=== PATIENT | female | born 1970 | race Caucasian/White ===

== ENCOUNTER → 2017-10-08 | Outpatient (CLI) | payer OTHER ==
--- NOTE | 2017-10-08 19:52 | XR ---
EXAMINATION TYPE: XR ankle complete RT DATE OF EXAM: 10/08/2017 COMPARISON: NONE HISTORY: Pain TECHNIQUE: 3 views FINDINGS: There are plantar and Achilles calcaneal spurs. I see no fracture nor dislocation. Subtalar joint appears normal. Ankle mortise is anatomic. IMPRESSION: Calcaneal spurring. No fracture seen. Calcification at the medial malleolus consistent wi th old injury.
== END | disposition home or self-care (01) ==
LOC: RADXRMAIN 19:22
PROVIDERS: ATTEND Family Medicine
DX: M77.31 Calcaneal spur, right foot (principal)

== ENCOUNTER → 2018-08-13 | Outpatient (CLI) | payer OTHER ==
--- NOTE | 2018-08-13 13:36 | US ---
EXAMINATION TYPE: US thyroid st tissue head/neck DATE OF EXAM: 08/13/2018 COMPARISON: US 10/04/16 CLINICAL HISTORY: E04.1 Nontoxic single thyroid nodule. GLAND SIZE: Right Lobe: 3.9 x 1.9 x 1.6 cm Overall Parenchyma: heterogenous Left Lobe: 4.0 x 1.5 x 1.4 cm Overall Parenchyma: heterogeneous Isthmus Thickness: 0.4 cm NODULES RIGHT: # of nodules measured on right: 2 1. 1.5 X 1.3 x 1.1 cm hypoechoic solid nodule at the Upper, Medial pole with well-defined margins; . This nodule is wider than tall and shows intranodular vascularity. Prior size: 1.4 x 1.0 cm 2. 0.8 X 0.6 x 0.5 cm isoechoic solid nodule at the Mid, Lateral pole with poorly defined margins; p resent with microcalcifications. This nodule is wider than tall and shows intranodular vascularity. Prior size: 0.8 x 0.6 cm LEFT: # of nodules measured on left: 2 1. 0.3 X 0.4 x 0.2 cm hypoechoic solid nodule at the lower pole with well-defined margins; . This nodule is wider than tall and shows no intranodular vascularity. Previously this was seen as cystic Prior size: 0.4 cm 2. 0.3 X 0.4 x 0.3 cm hypoechoic solid nodule at the mid pole with well-defined margins; . This nod ule is wider than tall and shows no intranodular vascularity. Prior size: Not seen previously ISTHMUS: # of nodules measured on isthmus: 0 Bilateral neck scanned, no evidence of lymphadenopathy. IMPRESSION: Essentially stable exam. Possible new subcentimeter nodule left lobe inferior aspect.
== END | disposition home or self-care (01) ==
LOC: RADUSWWP 07:08
PROVIDERS: ATTEND Family Medicine
DX: E04.1 Nontoxic single thyroid nodule (principal)
CPT/HCPCS: 76536

== ENCOUNTER → 2018-08-21 | Outpatient (CLI) | payer OTHER ==
--- NOTE | 2018-08-22 10:15 | NM ---
EXAMINATION TYPE: NM thyroid image w uptake DATE OF EXAM: 08/22/2018 COMPARISON: Ultrasound 08/13/2018 HISTORY: Abnormal ultrasound TECHNIQUE: Thyroid iodine uptake is calculated and images performed after the oral administration of 307 uCi 1-123 Capsule. FINDINGS: There is heterogeneous uptake throughout the right lobe of the thyroid.. The 4 hour iodine uptake is calculated at 14.7% (normal range 8-14%). The 24-hour iodine uptake is calculated at 29.1% (normal range 15-35%). IMPRESSION: 1. Uptake is at the upper limits of normal. 2. Heterogeneous uptake throughout the right lobe of the thyroid. Reduced area of uptake may correspo nd to the 1.5 cm nodule seen by recent ultrasound representing a cold nodule.
== END | disposition home or self-care (01) ==
LOC: RADNMMAIN 09:33
PROVIDERS: ATTEND Family Medicine
DX: E04.1 Nontoxic single thyroid nodule (principal); R94.8 Abnormal results of function studies of other organs and systems
CPT/HCPCS: 78014; A9516

== ENCOUNTER 2018-10-18 09:31 | Day surgery (SDC) | payer OTHER ==
[2018-10-18 10:00] VITALS: TEMP 98.2
[2018-10-18 11:27] VITALS: PULSE 80
[2018-10-18 11:28] VITALS: BP 136/80; RESP 14
--- NOTE | 2018-10-18 11:36 | US ---
ULTRASOUND GUIDED FNA THYROID BIOPSY: CLINICAL HISTORY: Right thyroid nodule FINDINGS: The procedure was explained to the patient. The risks, complications, benefits and alternatives were discussed and any questions were answered. Informed consent was obtained. Patient was placed supin e on the ultrasound table and prepped and draped in the usual sterile fashion. Utilizing a 25 gauge needle, five passes were made into the requested right thyroid nodule. Patient was stable throughout the procedure. Pathology is pending. All elements of maximal barrier technique were utilized. IMPRESSION: 1. Successful ultrasound guided FNA thyroid biopsy.
== END 2018-10-18 11:05 | disposition home or self-care (01) ==
LOC: RADPROMAIN 09:31
PROVIDERS: ATTEND Otolaryngology
DX: E04.1 Nontoxic single thyroid nodule (principal)
CPT/HCPCS: 10022; 76942; 88173; 88305

== ENCOUNTER → 2019-04-23 | Outpatient (CLI) | payer OTHER ==
--- NOTE | 2019-04-23 16:10 | US ---
EXAMINATION TYPE: US thyroid st tissue head/neck DATE OF EXAM: 04/23/2019 COMPARISON: US 08/13/2018 CLINICAL HISTORY: E04.1 thyroid nodule. Follow up. Previous biopsy on the right GLAND SIZE: Right Lobe: 4.5 x 1.8 x 1.8 cm Overall Parenchyma: homogenous Left Lobe: 4.0 x 1.2 x 1.5 cm Overall Parenchyma: homogeneous Isthmus Thickness: 0.3 cm NODULES RIGHT: # of nodules measured on right: 2 1. 1.3 X 1.0 x 1.2 cm hypoechoic solid nodule at the mid pole with well-defined margins; . This no dule is wider than tall and shows intranodular vascularity. Prior size: 1.5 x 1.3 x 1.1 cm 2. 0.5 X 0.6 x 0.4 cm calcification nodule at the upper pole with poorly defined margins; . This no dule is taller than wide and shows no intranodular vascularity. Prior size: 0.8 x 0.5 x 0.6 cm LEFT: # of nodules measured on left: 0 ISTHMUS: # of nodules measured in the isthmus: 0 Bilateral neck scanned, no evidence of lymphadenopathy. Redemonstration of homogeneous normal-sized thyroid with stable right-sided thyroid nodules. No new s uspicious nodules are seen. IMPRESSION: As above.
== END | disposition home or self-care (01) ==
LOC: RADUSWWP 15:07
PROVIDERS: ATTEND Otolaryngology
DX: E04.2 Nontoxic multinodular goiter (principal)
CPT/HCPCS: 76536

== ENCOUNTER → 2019-10-13 | Outpatient (CLI) | payer OTHER ==
--- NOTE | 2019-10-13 08:36 | US ---
EXAMINATION TYPE: US thyroid st tissue head/neck DATE OF EXAM: 10/13/2019 COMPARISON: US CLINICAL HISTORY: E04.1 Thyroid nodule. Previous right larger thyroid nodule biopsy. GLAND SIZE: Right Lobe: 4.7 x 1.9 x 1.7 cm Overall Parenchyma: homogenous Left Lobe: 4.0 x 1.4 x 1.5 cm Overall Parenchyma: homogeneous Isthmus Thickness: 0.5 cm NODULES RIGHT: # of nodules measured on right: 2 1. 1.4 X 1.3 x 1.1 cm hypoechoic mixed nodule at the mid medial pole with well-defined margins. Th is nodule is wider than tall and shows intranodular vascularity. Prior size: 1.3 x 1.0 x 1.2 cm 2. 0.7 X 0.6 x 0.5 cm isoechoic mixed nodule at the lateral mid pole with well-defined margins; inte rrupted peripheral calcification. This nodule is wider than tall and shows no intranodular vasculari ty. Prior size: 0.5 x 0.6 x 0.4 cm LEFT: # of nodules measured on left: 0 ISTHMUS: # of nodules measured in the isthmus: 0 Bilateral neck scanned: no evidence of lymphadenopathy. IMPRESSION: 1. Stable bilateral thyroid nodules
== END | disposition home or self-care (01) ==
LOC: RADUSWWP 07:41
PROVIDERS: ATTEND Otolaryngology
DX: E04.2 Nontoxic multinodular goiter (principal)
CPT/HCPCS: 76536

== ENCOUNTER → 2020-05-03 | Outpatient (CLI) | payer OTHER ==
--- NOTE | 2020-05-03 21:25 | US ---
EXAMINATION TYPE: US thyroid st tissue head/neck DATE OF EXAM: 05/03/2020 COMPARISON: NONE CLINICAL HISTORY: E04.1 Thyroid nodule. GLAND SIZE: Right Lobe: 4.2 x 2.0 x 1.5 cm Overall Parenchyma: homogenous Left Lobe: 4.0 x 1.8 x 1.6 cm Overall Parenchyma: homogeneous Isthmus Thickness: 0.3 cm NODULES RIGHT: # of nodules measured on right: 2 1. 1.4 X 0.9 x 1.2 cm hypoechoic solid nodule at the mid pole with well-defined margins. This nodu le is wider than tall and shows no intranodular vascularity. Prior size: 1.4 x 1.3 x 1.1 cm 2. 0.6 X 0.5 x 0.5 cm hypoechoic solid nodule at the mid pole with well-defined margins. This nodul e is wider than tall and shows no intranodular vascularity. Prior size: 0.7 x 0.6 x 0.5 cm LEFT: # of nodules measured on left: 0 ISTHMUS: # of nodules measured in the isthmus: 0 Bilateral neck scanned, no evidence of lymphadenopathy. IMPRESSION: Stable thyroid nodules
== END | disposition home or self-care (01) ==
LOC: RADUSMAIN 16:42
PROVIDERS: ATTEND Otolaryngology
DX: E04.2 Nontoxic multinodular goiter (principal)
CPT/HCPCS: 76536

== ENCOUNTER → 2021-05-30 | Outpatient (CLI) | payer OTHER ==
--- NOTE | 2021-05-30 13:11 | US ---
EXAMINATION TYPE: US thyroid st tissue head/neck DATE OF EXAM: 05/30/2021 COMPARISON: 05/03/2020 CLINICAL HISTORY: E04.1 Thyroid nodule. GLAND SIZE: Right Lobe: 4.2 x 2.1 x 1.9 cm Overall Parenchyma: homogenous Left Lobe: 3.7 x 1.7 x 1.3 cm Overall Parenchyma: homogeneous Isthmus Thickness: 0.4 cm NODULES RIGHT: # of nodules measured on right: 2 1. 1.4 X 1.0 x 1.1 cm, mid , solid or almost completely solid, hypoechoic nodule, which is wider th an tall, with smooth margins, without echogenic foci. Prior size: 1.4 x 0.9 x 1.2 cm 2. 0.6 X 0.5 x 0.5 cm, mid , solid or almost completely solid, hypoechoic nodule, which is wider th an tall, with smooth margins, without echogenic foci. Prior size: 0.6 x 0.5 x 0.5 cm LEFT: # of nodules measured on left: 0 ISTHMUS: # of nodules measured in the isthmus: 0 Bilateral neck scanned, no evidence of lymphadenopathy. IMPRESSION: Unchanged Right thyroid nodules. 2017 ACR TI-RADS LEVEL: TR-RADS 4 - Moderately Suspicious: Follow if > 1 cm, FNA if > 1.5 cm *Highest TI-RADS level nodule reported
== END | disposition home or self-care (01) ==
LOC: RADUSWWP 09:53
PROVIDERS: ATTEND Otolaryngology
DX: E04.2 Nontoxic multinodular goiter (principal)
CPT/HCPCS: 76536

== ENCOUNTER → 2022-06-02 | Outpatient (CLI) | payer OTHER ==
--- NOTE | 2022-06-02 09:04 | US ---
EXAMINATION TYPE: US thyroid st tissue head/neck DATE OF EXAM: 06/02/2022 COMPARISON: US 05/30/21 and older studies. CLINICAL HISTORY: E04.1 THYROID NODULE. Hx of thyroid nodules. GLAND SIZE: Right Lobe: 4.2 x 2.1 x 1.7 cm Overall Parenchyma: homogenous Left Lobe: 4.1 x 1.6 x 1.7 cm Overall Parenchyma: homogeneous Isthmus Thickness: 0.3 cm NODULES RIGHT: # of nodules measured on right: 2 1. 1.4 X 1.3 x 1.1 cm, mid medial, solid or almost completely solid, hypoechoic nodule, which is wi birgit than tall, with smooth margins, with echogenic foci. Prior size: 1.4 x 1.0 x 1.1 cm 2. 0.7 X 0.5 x 0.5 cm, mid mid, solid or almost completely solid, isoechoic nodule, which is taller than wide, with smooth margins, without echogenic foci. Prior size: 0.6 x 0.5 x 0.5 cm LEFT: # of nodules measured on left: 0 ISTHMUS: # of nodules measured in the isthmus: 0 Bilateral neck scanned, no evidence of lymphadenopathy. Homogeneous somewhat small size thyroid redemonstrated with 2 stable right-sided thyroid nodules. IMPRESSION: As above. No new or enlarging suspicious nodules present.
== END | disposition home or self-care (01) ==
LOC: RADUSWWP 08:27
PROVIDERS: ATTEND Otolaryngology
DX: E04.1 Nontoxic single thyroid nodule (principal)
CPT/HCPCS: 76536

== ENCOUNTER → 2022-06-12 | Outpatient (CLI) | payer OTHER | END | disposition home or self-care (01) | LOC: LABWHC1 08:36 | PROVIDERS: ATTEND Otolaryngology | DX: E04.1 Nontoxic single thyroid nodule (principal) | CPT/HCPCS: 36415; 84443 ==

== ENCOUNTER → 2023-06-27 | Outpatient (CLI) | payer OTHER ==
--- NOTE | 2023-06-27 13:06 | US ---
EXAMINATION TYPE: US thyroid st tissue head/neck DATE OF EXAM: 06/27/2023 COMPARISON: US 06-09 CLINICAL INDICATION: Female, 53 years old with history of E04.1 thyroid nodule; follow up on known ri ght nodules GLAND SIZE: Right Lobe: 4.3 x 2.2 x 2.1 cm Overall Parenchyma: homogenous Left Lobe: 4.2 x 1.5 x 1.4 cm Overall Parenchyma: homogeneous Isthmus Thickness: 0.2 cm NODULES RIGHT: # of nodules measured on right: 2 1. 1.3 X 1.0 x 1.3 cm hypoechoic solid TR 4 nodule at the mid/superior pole medially with smooth ma rgins. Prior size: 1.4 x 1.3 x 1.1 cm 2. 0.7 X 0.5 x 0.5 cm solid isoechoic, but peripherally calcified nodule and smooth margins. The pe ripheral calcifications raises this to a TR 5 category. Prior size: 0.7 x 0.5 x 0.5 cm LEFT: # of nodules measured on left: 0 ISTHMUS: # of nodules measured in the isthmus: 0 Bilateral neck scanned, no evidence of lymphadenopathy. IMPRESSION: A couple solid nodules on the right. The larger 1.3 cm TR 4 nodule is stable. The smaller 7 mm nodule is also stable. The peripheral calcification may make this a TR5 nodule that can continue to be foll owed.
== END | disposition home or self-care (01) ==
LOC: RADUSWWP 07:46
PROVIDERS: ATTEND Otolaryngology
DX: E04.2 Nontoxic multinodular goiter (principal)
CPT/HCPCS: 76536

== ENCOUNTER 2023-12-25 14:10 | Emergency (ER) | payer OTHER ==
[2023-12-25 14:33] VITALS: TEMP 98.4
--- NOTE | 2023-12-25 15:29 | ED ---
General Adult HPI - General Chief complaint: GI Bleed Stated complaint: rectal bleeding Time Seen by Provider: 12/25/23 15:11 Source: patient Mode of arrival: ambulatory Limitations: no limitations - History of Present Illness Initial comments: Dictation was produced using [employer] dictation software. please excuse any grammatical, word or spelling errors. Chief Complaint: 53-year-old female presents with b bright red blood blood per rectum History of Present Illness: Patient is a 53-year-old female presents emergency department with bright red blood per rectum. States that she has been dealing with hemorrhoid symptoms for the last several weeks. She went to her primary care doctor earlier today had a digital rectal exam. States that there was not any significant bleeding. She went home and when going to urinate she filled the toilet bowl at least 2 or 3 times with bright red blood. Denies any rectal pain. She has known history of internal hemorrhoid. She was scheduled to have a colonoscopy on January 08. Denies any nausea or vomiting. She states she has some vague familial hematologic condition. She denies hemophilia. The ROS documented in this emergency department record has been reviewed and confirmed by me. Those systems with pertinent positive or negative responses have been documented in the HPI. All other systems are other negative and/or noncontributory. - Related Data Home Medications Medication Instructions Recorded Confirmed [place] Her[employer] Blend PO DAILY 10/04/18 Citalopram Hydrobromide [CeleXA] 20 mg PO HS 10/04/18 10/18/18 Loratadine-Pseudoeph 10-240 mg 1 each PO DAILY PRN 10/04/18 10/18/18 [Claritin-D 24 Hr] Previous Rx's Medication Instructions Recorded Sulfamethox-Tmp 800-160Mg [Bactrim 1 tab PO Q12HR 10 Days #20 tab 12/25/23 DS 800-160 mg] metroNIDAZOLE [Flagyl] 500 mg PO QID 10 Days #30 tab 12/25/23 Allergies Allergy/AdvReac Type Severity Reaction Status Date / Time Latex, Natural Rubber Allergy Dyspnea Verified 12/25/23 14:27 moxifloxacin [From Avelox] Allergy Rash/Hives Verified 12/25/23 14:27 Penicillins Allergy Rash/Hives Verified 12/25/23 14:27 thimerosal Allergy Swelling Verified 12/25/23 14:27 gatifloxacin [From Tequin] AdvReac thrush,diar Verified 12/25/23 14:27 magalys cain Allergy felt like Uncoded 12/25/23 14:27 throat was closing Review of Systems ROS Statement: Those systems with pertinent positive or pertinent negative responses have been documented in the HPI. ROS Other: All systems not noted in ROS Statement are negative. Past Medical History Past Medical History: Asthma, GERD/Reflux, Osteoarthritis (OA), Thyroid Disorder Additional Past Medical History / Comment(s): thyroid nodules, hiatal hernia, DDD History of Any Multi-Drug Resistant Organisms: None Reported Past Surgical History: Hernia Repair Additional Past Surgical History / Comment(s): hernia repair as a baby Past Anesthesia/Blood Transfusion Reactions: No Reported Reaction Past Psychological History: Depression Smoking Status: Never smoker Past Alcohol Use History: None Reported Past Drug Use History: None Reported - Past Family History Sister(s) Family Medical History: Deep Vein Thrombosis (DVT) General Exam - General Exam Comments Initial Comments: PHYSICAL EXAM: General Impression: Alert and oriented x3, not in acute distress HEENT: Normocephalic atraumatic, extra-ocular movements intact, pupils equal and reactive to light bilaterally, mucous membranes moist. Cardiovascular: Heart regular rate and rhythm Chest: Able to complete full sentences, no retractions, no tachypnea Abdomen: abdomen soft, non-tender, non-distended, no organomegaly Musculoskeletal: Pulses present and equal in all extremities, no peripheral edema Motor: no focal deficits noted Neurological: CN II-XII grossly intact, no focal motor or sensory deficits noted Skin: Intact with no visualized rashes Psych: Normal affect and mood Rectal exam: No gross abnormalities, some bright red blood on some tissue at the anal orifice Limitations: no limitations Course Vital Signs 12/25/23 14:23 Temperature 98.4 F Pulse Rate 59 L Respiratory 16 Rate Blood Pressure 152/83 O2 Sat by Pulse 95 Oximetry Medical Decision Making - Medical Decision Making Was pt. sent in by a medical professional or institution (, PA, EXCHANGE SPECIALIST, urgent care, hospital, or detention...) When possible be specific @ -Told to come in by primary care doctor Did you speak to anyone other than the patient for history (EMS, parent, family, police, friend...)? What history was obtained from this source @ -No Did you review nursing and triage notes (agree or disagree)? Why? @ -I reviewed and agree with nursing and triage notes Were old charts reviewed (outside hosp., previous admission, EMS record, old EKG, old radiological studies, urgent care reports/EKG's, detention records)? Report findings @ -No old charts were reviewed Differential Diagnosis (chest pain, altered mental status, abdominal pain women, abdominal pain men, vaginal bleeding, musculoskeletal, weakness, fever, dyspnea, syncope, headache, dizziness, GI bleed, back pain, seizure, CVA, palpatations, mental health)? @ -Differential GI Bleed: Esophageal varices, aortoenteric fistula, Esme-Eric, gastritis, peptic ulcer disease, diverticulosis, inflammatory bowel disease, hemorrhoids, fissure, colitis, malignancy, Meckels diverticulum, this is not meant to be an all- inclusive list. EKG interpreted by me (3pts min.). @ -None done X-rays interpreted by me (1pt min.). @ -None done CT interpreted by me (1pt min.). @ -CT abdomen pelvis shows proctitis U/S interpreted by me (1pt. min.). @ -None done What testing was considered but not performed or refused? (CT, X-rays, U/S, labs)? Why? @ -None What meds were considered but not given or refused? Why? @ -None Did you discuss the management of the patient with other professionals (pr ofessionals i.e. , PA, EXCHANGE SPECIALIST, lab, RT, psych nurse, social media sr strategy manager, etl database developer, teacher, electronic warfare officer, case management coordinator)? Give summary @ -No Was smoking cessation discussed for >3mins.? @ -No Was critical care preformed (if so, how long)? @ -No Were there social determinants of health that impacted care today? How? (Homelessness, low income, unemployed, alcoholism, drug addiction, transportation, low edu. Level, literacy, decrease access to med. care, residential, rehab)? @ -No Was there de-escalation of care discussed even if they declined (Discuss DNR or withdrawal of care, Hospice)? DNR status @ -No What co-morbidities impacted this encounter? (DM, HTN, Smoking, COPD, CAD, Cancer, CVA, ARF, Chemo, Hep., AIDS, mental health diagnosis, sleep apnea, morbid obesity)? @ -None Was patient admitted / discharged? Hospital course, mention meds given and route, prescriptions, significant lab abnormalities, going to OR and other pertinent info. @ -53-year-old female presents with bright red blood per rectum. She was told that perhaps maybe this bleeding could be from internal hemorrhoid. Vital signs stable. Rectal exam does not show any active bleeding. Laboratory evaluation shows leukocytosis of 25.1. CT abdomen pelvis was obtained showing inflammation around the rectum. At this point there is suspicion of infectious cause of proctitis. Patient given prescription for antibiotics. She is told of the differential that causes proctitis including inflammatory bowel disease and also malignancy. She is told to follow-up closely with her primary care doctor. Return precautions discussed. Patient is agreeable with plan. Undiagnosed new problem with uncertain prognosis? @ -No Drug Therapy requiring intensive monitoring for toxicity (Heparin, Nitro, Insulin, Cardizem)? @ -No Were any procedures done? @ -No Diagnosis/symptom? Acute, or Chronic, or Acute on Chronic? Uncomplicated (without systemic symptoms) or Complicated (systemic symptoms)? @ -Bright red blood per rectum Side effects of treatment? @ -No Exacerbation, Progression, or Severe Exacerbation? @ -No Poses a threat to life or bodily function? How? (Chest pain, USA, MS, pneumonia, PE, COPD, DKA, ARF, appy, cholecystitis, CVA, Diverticulitis, Homicidal, Suicidal, threat to staff... and all critical care pts) @ -yes - Lab Data Result diagrams: 12/25/23 15:35 12/25/23 15:35 Lab Results 12/25/23 12/25/23 12/25/23 Range/Units 15:34 15:35 15:35 WBC 25.1 H (3.8-10.6) k/uL RBC 5.46 H (3.80-5.40) m/uL Hgb 15.4 (11.4-16.0) gm/dL Hct 45.6 (34.0-46.0) % MCV 83.4 (80.0-100.0) fL MCH 28.2 (25.0-35.0) pg MCHC 33.7 (31.0-37.0) g/dL RDW 13.2 (11.5-15.5) % Plt Count 307 (150-450) k/uL MPV 7.7 Neutrophils % 90 % Lymphocytes % 6 % Monocytes % 2 % Eosinophils % 0 % Basophils % 0 % Neutrophils # 22.6 H (1.3-7.7) k/uL Lymphocytes # 1.6 (1.0-4.8) k/uL Monocytes # 0.6 (0-1.0) k/uL Eosinophils # 0.1 (0-0.7) k/uL Basophils # 0.1 (0-0.2) k/uL PT 10.9 (10.0-12.5) sec INR 1.0 (<1.2) APTT 23.8 (22.0-30.0) sec Sodium (137-145) mmol/L Potassium (3.5-5.1) mmol/L Chloride (98-107) mmol/L Carbon Dioxide (22-30) mmol/L Anion Gap mmol/L BUN (7-17) mg/dL Creatinine (0.52-1.04) mg/dL Est GFR (CKD-EPI)AfAm (>60 ml/min/1.73 sqM) Est GFR (CKD-EPI)NonAf (>60 ml/min/1.73 sqM) Glucose (74-99) mg/dL Calcium (8.4-10.2) mg/dL Blood Type A Positive Blood Type Confirm Blood Type Recheck No Previous Record Bld Type Recheck Status CABO Indicated Antibody Screen NEGATIVE Spec Expiration Date 12/28/2023 - 233312/25/23 12/25/23 Range/Units 15:35 15:35 WBC (3.8-10.6) k/uL RBC (3.80-5.40) m/uL Hgb (11.4-16.0) gm/dL Hct (34.0-46.0) % MCV (80.0-100.0) fL MCH (25.0-35.0) pg MCHC (31.0-37.0) g/dL RDW (11.5-15.5) % Plt Count (150-450) k/uL MPV Neutrophils % % Lymphocytes % % Monocytes % % Eosinophils % % Basophils % % Neutrophils # (1.3-7.7) k/uL Lymphocytes # (1.0-4.8) k/uL Monocytes # (0-1.0) k/uL Eosinophils # (0-0.7) k/uL Basophils # (0-0.2) k/uL PT (10.0-12.5) sec INR (<1.2) APTT (22.0-30.0) sec Sodium 139 (137-145) mmol/L Potassium 4.5 (3.5-5.1) mmol/L Chloride 103 (98-107) mmol/L Carbon Dioxide 25 (22-30) mmol/L Anion Gap 11 mmol/L BUN 20 H (7-17) mg/dL Creatinine 0.77 (0.52-1.04) mg/dL Est GFR (CKD-EPI)AfAm >90 (>60 ml/min/1.73 sqM) Est GFR (CKD-EPI)NonAf 87 (>60 ml/min/1.73 sqM) Glucose 105 H (74-99) mg/dL Calcium 10.2 (8.4-10.2) mg/dL Blood Type Blood Type Confirm A Positive Blood Type Recheck Bld Type Recheck Status Antibody Screen Spec Expiration Date Disposition Clinical Impression: Proctitis Disposition: HOME SELF-CARE Condition: Fair Instructions (If sedation given, give patient instructions): Gastrointestinal Bleeding (ED) Additional Instructions: follow up closely with PCP. Prescriptions: Sulfamethox-Tmp 800-160Mg [Bactrim DS 800-160 mg] 1 tab PO Q12HR 10 Days #20 tab metroNIDAZOLE [Flagyl] 500 mg PO QID 10 Days #30 tab Is patient prescribed a controlled substance at d/c from ED?: No Referrals: Thalia Mann MD [Primary Care Provider] - 1-2 days Time of Disposition: 18:22
[2023-12-25 15:51] LABS: Basophils # (A) 0.1 k/uL (0-0.2); Basophils % (A) 0 %; Eosinophils # (A) 0.1 k/uL (0-0.7); Eosinophils % (A) 0 %; HCT 45.6 % (34.0-46.0); HGB 15.4 gm/dL (11.4-16.0); Lymphocytes # (A) 1.6 k/uL (1.0-4.8); Lymphocytes % (A) 6 %; MCH 28.2 pg (25.0-35.0); MCHC 33.7 g/dL (31.0-37.0); MCV 83.4 fL (80.0-100.0); Mean Platelet Volume 7.7; Monocytes # (A) 0.6 k/uL (0-1.0); Monocytes % (A) 2 %; Neutrophils # (A) 22.6 k/uL (1.3-7.7); Neutrophils % (A) 90 %; Platelet Count 307 k/uL (150-450); RBC 5.46 m/uL (3.80-5.40); RDW 13.2 % (11.5-15.5); WBC 25.1 k/uL (3.8-10.6)
[2023-12-25 16:02] LABS: African American GFR (CKD) >90 (>60 ml/min/1.73 sqM); Anion Gap 11 mmol/L; Blood Urea Nitrogen 20 mg/dL (7-17); Calcium 10.2 mg/dL (8.4-10.2); Carbon Dioxide 25 mmol/L (22-30); Chloride 103 mmol/L (98-107); Glucose 105 mg/dL (74-99); Non-African American GFR(CKD) 87 (>60 ml/min/1.73 sqM); Potassium 4.5 mmol/L (3.5-5.1); Sodium 139 mmol/L (137-145)
[2023-12-25 16:23] LABS: Partial Thromboplastin Time 23.8 sec (22.0-30.0); Prothrombin Time 10.9 sec (10.0-12.5)
--- NOTE | 2023-12-25 17:04 | CT ---
EXAMINATION TYPE: CT abdomen pelvis wo con DATE OF EXAM: 12/25/2023 COMPARISON: None HISTORY: Elevated WBC. R/O diverticulitis and GI bleed. Pt states that she has a bleeding hemroid. CT DLP: 634.1 mGycm Examination of the solid and hollow viscera is limited given the lack of contrast. FINDINGS: LUNG BASES: No evidence for nodule. No evidence for infiltrate. Small hiatal hernia noted. LIVER/GB: The gallbladder is unremarkable. No space-occupying hepatic lesion. PANCREAS: No pancreatic mass identified. No inflammatory process seen. SPLEEN: No evidence for splenomegaly. No intrasplenic lesions seen. ADRENALS: No adrenal nodules identified. No evidence for thickening. KIDNEYS: No evidence for renal mass. No nephrolithiasis. No hydronephrosis. BOWEL: Appendix has a normal appearance. There is rectal wall thickening with perirectal inflammatory change. Correlate for proctitis. Focal low density at the 1-2 o'clock, position measuring 2.4 cm is noted to reflect a diverticulum at the rectosigmoid junction. Sigmoid diverticulosis. Lymph nodes: No evidence for adenopathy greater than 1 cm. Abdominal aorta: Atheromatous changes seen. No evidence for aneurysm. Genital organs: No significant abnormality. Other: No significant abnormality. IMPRESSION: There is rectal wall thickening with perirectal inflammatory change. Correlate for proctitis. Focal l ow density at the 1-2 o'clock, position measuring 2.4 cm is noted to reflect a diverticulum at the re ctosigmoid junction.
[2023-12-25 18:40] VITALS: BP 134/95; PULSE 108; RESP 18
== END 2023-12-25 18:33 | disposition home or self-care (01) ==
LOC: EC 14:10
DX: K62.89 Other specified diseases of anus and rectum (principal); J45.909 Unspecified asthma, uncomplicated; F32.A Depression, unspecified; Z79.899 Other long term (current) drug therapy; Z88.0 Allergy status to penicillin; Z88.1 Allergy status to other antibiotic agents; Z91.040 Latex allergy status; Z91.048 Other nonmedicinal substance allergy status; Z91.09 Other allergy status, other than to drugs and biological substances
CPT/HCPCS: 36415; 74176; 80048; 85025; 85610; 85730; 86850; 86900; 86901; 99285

== ENCOUNTER 2024-06-04 19:08 | Emergency (ER) | payer OTHER ==
--- NOTE | 2024-06-04 19:19 | ED ---
Altered Mental Status HPI - General Stated Complaint: unresponsive Time Seen by Provider: 06/04/24 19:12 Source: RN notes reviewed, old records reviewed Mode of arrival: EMS Limitations: altered mental status - History of Present Illness Initial Comments: This is a 54-year-old female for altered mental status decreased levels of responsiveness, patient does present as a Oly Mai, family arrives were able to find patient's name patient is unable to provide history. Daughter is here states that she began to act confused throughout the course of the day and they were going to take her to the hospital when she became unresponsive and they called EMS. MD Complaint: altered mental status, confusion, decreased responsiveness, weakness -: hour(s) Severity: severe Consistency of Symptoms: getting worse Context: history of similar presentation, cancer Associated Symptoms: weakness Treatments Prior to Arrival: IV fluid, oxygen - Related Data Home Medications Medication Instructions Recorded Confirmed EPINEPHrine (Auto Inject) [Epipen] 0.3 mg IM ONCE PRN 06/04/24 06/04/24 Gabapentin 300 mg PO TID 06/04/24 06/04/24 Morphine Sulfate ER [Ms Contin] 30 mg PO Q12HR 06/04/24 06/04/24 Omeprazole 40 mg PO DAILY 06/04/24 06/04/24 dexAMETHasone [Decadron] 1 mg PO DAILY 06/04/24 06/04/24 ondansetron HCL [Zofran] 8 mg PO Q8H PRN 06/04/24 06/04/24 oxyCODONE HCL [OxyIR] 10 mg PO QID PRN 06/04/24 06/04/24 Allergies Allergy/AdvReac Type Severity Reaction Status Date / Time banana Allergy Unknown Verified 06/04/24 20:55 bee venom protein (honey bee) Allergy Anaphylaxis Verified 06/04/24 20:55 gluten Allergy Unknown Verified 06/04/24 20:55 Latex, Natural Rubber Allergy Dyspnea/Itc Verified 06/04/24 20:55 h moxifloxacin [From Avelox] Allergy Rash/Hives Verified 06/04/24 20:55 Mushroom Allergy Anaphylaxis Verified 06/04/24 20:55 nickel Allergy Rash/Hives Verified 06/04/24 20:55 Penicillins Allergy Rash/Hives Verified 06/04/24 20:55 procaine Allergy Anaphylaxis Verified 06/04/24 20:55 soy Allergy Rash/Hives Verified 06/04/24 20:55 thimerosal Allergy Anaphylaxis Verified 06/04/24 20:55 gatifloxacin [From Tequin] AdvReac thrush,diar Verified 06/04/24 20:55 magalys cain Influenza Virus Vaccines AdvReac edema Verified 06/04/24 20:55 ирина Allergy Anaphylaxis Uncoded 06/04/24 20:55 Review of Systems ROS Statement: Those systems with pertinent positive or pertinent negative responses have been documented in the HPI. ROS Other: All systems not noted in ROS Statement are negative. Past Medical History Past Medical History: Asthma, GERD/Reflux, Osteoarthritis (OA), Thyroid Disorder Additional Past Medical History / Comment(s): thyroid nodules, hiatal hernia, DDD History of Any Multi-Drug Resistant Organisms: None Reported Past Surgical History: Hernia Repair Additional Past Surgical History / Comment(s): hernia repair as a baby Past Anesthesia/Blood Transfusion Reactions: No Reported Reaction Past Psychological History: Depression Smoking Status: Never smoker Past Alcohol Use History: None Reported Past Drug Use History: None Reported - Past Family History Sister(s) Family Medical History: Deep Vein Thrombosis (DVT) General Exam General appearance: alert, in no apparent distress Head exam: Present: atraumatic, normocephalic, normal inspection Eye exam: Present: normal appearance, PERRL, EOMI. Absent: scleral icterus, conjunctival injection, periorbital swelling ENT exam: Present: normal exam, mucous membranes moist Neck exam: Present: normal inspection. Absent: tenderness, meningismus, lymphadenopathy Respiratory exam: Present: normal lung sounds bilaterally. Absent: respiratory distress, wheezes, rales, rhonchi, stridor Cardiovascular Exam: Present: regular rate, normal rhythm, normal heart sounds. Absent: systolic murmur, diastolic murmur, rubs, gallop, clicks GI/Abdominal exam: Present: soft, normal bowel sounds. Absent: distended, tenderness, guarding, rebound, rigid Extremities exam: Present: normal inspection, full ROM, normal capillary refill. Absent: tenderness, pedal edema, joint swelling, calf tenderness Back exam: Present: normal inspection Neurological exam: Present: alert, oriented X3, CN II-XII intact Psychiatric exam: Present: normal affect, normal mood Skin exam: Present: warm, dry, intact, normal color. Absent: rash Course Vital Signs 06/04/24 06/04/24 06/04/24 19:12 20:52 23:05 Temperature 98.3 F Pulse Rate 120 H 102 H 100 Respiratory 24 22 20 Rate Blood Pressure 102/56 100/60 100/67 O2 Sat by Pulse 99 98 97 Oximetry - Reevaluation(s) Reevaluation #1: 06/04/24 19:19 Medical records reviewed Reevaluation #2: 06/04/24 19:19 Patient symptoms unchanged Reevaluation #3: 06/04/24 19:19 Patient informed of results and questions answered Reevaluation #4: Was pt. sent in by a medical professional or institution (, PA, [facility], urgent care, hospital, or custodial...) When possible be specific @ -no Did you speak to anyone other than the patient for history (EMS, parent, family, police, friend...)? What history was obtained from this source @ -no Did you review nursing and triage notes (agree or disagree)? Why? @ -agree Are old charts reviewed (outside hosp., previous admission, EMS record, old EKG, old radiological studies, urgent care reports/EKG's, custodial records)? Report findings @ -yes Differential Diagnosis (chest pain, altered mental status, abdominal pain women, abdominal pain men, vaginal bleeding, weakness, fever, dyspnea, syncope, heada yuriy, dizziness, GI bleed, back pain, seizure, CVA, palpatations, mental health, musculoskeletal)? @ -prior EKG interpreted by me (3pts min.). @ -yes X-rays interpreted by me (1pt min.). @ -Yes negative for acute disease CT interpreted by me (1pt min.). @ -N yes egative for acute disease U/S interpreted by me (1pt. min.). @ -no What testing was considered but not performed or refused? (CT, X-rays, U/S, labs)? Why? @ -none What meds were considered but not given or refused? Why? @ -none Did you discuss the management of the patient with other professionals (professionals i.e. , PA, [facility], lab, RT, psych nurse, social media marketing analyst, drill runner helper, teacher, law enforcement officer, director of casework services)? Give summary @ -no Was smoking cessation discussed for >3mins.? @ -no Was critical care preformed (if so, how long)? @ -no Were there social determinants of health that impacted care today? How? (Homelessness, low income, unemployed, alcoholism, drug addiction, transportation, low edu. Level, literacy, decrease access to med. care, fci, rehab)? @ -none Was there de-escalation of care discussed even if they declined (Discuss DNR or withdrawal of care, Hospice)? DNR status @ -no What co-morbidities impacted this encounter? (DM, HTN, Smoking, COPD, CAD, Cancer, CVA, ARF, Chemo, Hep., AIDS, mental health diagnosis, sleep apnea, morbid obesity)? @ -none Was patient admitted / discharged? Hospital course, mention meds given and route, prescriptions, significant lab abnormalities, going to OR and other pertinent info. @ - 54 female to ER for evaluation of altered mental status and not feeling well. Patient does not want further inpatient hospitalization or evaluation and can be discharged home Discharge Undiagnosed new problem with uncertain prognosis? @ -no Drug Therapy requiring intensive monitoring for toxicity (Heparin, Nitro, Insulin, Cardizem)? @ -no Were any procedures done? @ -no Diagnosis/symptom? @ -AMS Acute, or Chronic, or Acute on Chronic? @ -Acute Uncomplicated (without systemic symptoms) or Complicated (systemic symptoms)? @ -Complicated Side effects of treatment? @ -no Exacerbation, Progression, or Severe Exacerbation? @ -exacerbation Poses a threat to life or bodily function? How? (Chest pain, [place], [place], pneumonia, PE, COPD, DKA, ARF, appy, cholecystitis, CVA, Diverticulitis, Homicidal, Suicidal, threat to staff... and all critical care pts) @ -yes altered mental status Reevaluation #5: Differential Altered Mental Status: Hypoglycemia, DKA, hypercapnia, ETOH, overdose, CO poisoning, trauma, myxedema coma, HTN encephalopathy, infection, encephalitis, psychosis, intercranial hemorrhage, hepatic encephalopathy, meningitis, CVA, this is not meant to be an all-inclusive list Medical Decision Making - Medical Decision Making 54 female to ER for evaluation of altered mental status and not feeling well. Patient does not want further inpatient hospitalization or evaluation and can be discharged home - Lab Data Result diagrams: 06/04/24 19:37 06/04/24 19:37 Lab Results 06/04/24 06/04/24 06/04/24 Range/Units 19:37 19:37 19:37 WBC 0.3 L* (3.8-10.6) k/uL RBC 3.19 L (3.80-5.40) m/uL Hgb 8.5 L (11.4-16.0) gm/dL Hct 26.7 L (34.0-46.0) % MCV 83.6 (80.0-100.0) fL MCH 26.7 (25.0-35.0) pg MCHC 31.9 (31.0-37.0) g/dL RDW 17.6 H (11.5-15.5) % Plt Count 54 L (150-450) k/uL MPV 10.1 Neutrophils # [facility] Anisocytosis Slight PT (10.0-12.5) sec INR (<1.2) APTT (22.0-30.0) sec Sodium 131 L (137-145) mmol/L Potassium 4.0 (3.5-5.1) mmol/L Chloride 105 (98-107) mmol/L Carbon Dioxide 20 L (22-30) mmol/L Anion Gap 6 mmol/L BUN 22 H (7-17) mg/dL Creatinine 0.56 (0.52-1.04) mg/dL Est GFR (CKD-EPI)AfAm >90 (>60 ml/min/1.73 sqM) Est GFR (CKD-EPI)NonAf >90 (>60 ml/min/1.73 sqM) Glucose 90 (74-99) mg/dL Plasma Lactic Acid Daniel 1.7 (0.7-2.0) mmol/L Calcium 7.7 L (8.4-10.2) mg/dL Phosphorus 1.4 L (2.5-4.5) mg/dL Magnesium 1.9 (1.6-2.3) mg/dL Total Bilirubin 1.0 (0.2-1.3) mg/dL AST 18 (14-36) U/L ALT 13 (4-34) U/L Alkaline Phosphatase 353 H (38-126) U/L Ammonia 14 (<30) umol/L Troponin I (0.000-0.034) ng/mL NT-Pro-B Natriuret Pep 708 pg/mL Total Protein 5.0 L (6.3-8.2) g/dL Albumin 2.8 L (3.5-5.0) g/dL TSH 2.350 (0.465-4.680) mIU/L Salicylates <1.0 mg/dL Acetaminophen <10.0 ug/mL Serum Alcohol <10 mg/dL 06/04/24 06/04/24 Range/Units 19:37 19:37 WBC (3.8-10.6) k/uL RBC (3.80-5.40) m/uL Hgb (11.4-16.0) gm/dL Hct (34.0-46.0) % MCV (80.0-100.0) fL MCH (25.0-35.0) pg MCHC (31.0-37.0) g/dL RDW (11.5-15.5) % Plt Count (150-450) k/uL MPV Neutrophils # Anisocytosis PT 16.8 H (10.0-12.5) sec INR 1.6 H (<1.2) APTT 26.9 (22.0-30.0) sec Sodium (137-145) mmol/L Potassium (3.5-5.1) mmol/L Chloride (98-107) mmol/L Carbon Dioxide (22-30) mmol/L Anion Gap mmol/L BUN (7-17) mg/dL Creatinine (0.52-1.04) mg/dL Est GFR (CKD-EPI)AfAm (>60 ml/min/1.73 sqM) Est GFR (CKD-EPI)NonAf (>60 ml/min/1.73 sqM) Glucose (74-99) mg/dL Plasma Lactic Acid Daniel (0.7-2.0) mmol/L Calcium (8.4-10.2) mg/dL Phosphorus (2.5-4.5) mg/dL Magnesium (1.6-2.3) mg/dL Total Bilirubin (0.2-1.3) mg/dL AST (14-36) U/L ALT (4-34) U/L Alkaline Phosphatase (38-126) U/L Ammonia (<30) umol/L Troponin I <0.012 (0.000-0.034) ng/mL NT-Pro-B Natriuret Pep pg/mL Total Protein (6.3-8.2) g/dL Albumin (3.5-5.0) g/dL TSH (0.465-4.680) mIU/L Salicylates mg/dL Acetaminophen ug/mL Serum Alcohol mg/dL - EKG Data -: EKG Interpreted by Me (EKG Is sinus tachycardia 115 [place] 1 6 QRS 77 QTc 358) - Radiology Data Radiology results: report reviewed (CT brain and chest x-ray negative for acute disease), image reviewed Disposition Clinical Impression: Altered mental status Disposition: HOME SELF-CARE Condition: Fair Instructions (If sedation given, give patient instructions): Altered Mental Status (ED) Is patient prescribed a controlled substance at d/c from ED?: No Referrals: Thalia Mann MD [Primary Care Provider] - 1-2 days Time of Disposition: 22:50
[2024-06-04 19:25] VITALS: TEMP 98.3
[2024-06-04] MEDS: MORPHINE SULFATE 4 MG/ML SYRINGE IV STA (19:46)
[2024-06-04] MEDS: SODIUM CHLORIDE 0.9% 1,000 ML IV STA ×2 (19:47)
[2024-06-04] MEDS: ONDANSETRON 4 MG/2 ML VIAL IVP STA (19:47)
--- NOTE | 2024-06-04 20:25 | CT ---
EXAMINATION TYPE: CT brain wo con CT DLP: 1106.4 mGycm, Automated exposure control for dose reduction was used. DATE OF EXAM: 06/04/2024 8:03 PM COMPARISON: None. CLINICAL INDICATION:Female, 54 years old with history of weakness, AMS TECHNIQUE: Brain: Axial CT images of the brain were obtained with coronal and sagittal reformats created and rev iewed. Contrast used: None. Oral contrast used: None. FINDINGS: Brain: Extra-axial spaces: No abnormal extra-axial fluid collections. Ventricular system: Dilatation in proportion to cerebral atrophy. Cerebral parenchyma: Cerebral atrophy. No acute intraparenchymal hemorrhage or mass effect. The mills -white junction is well differentiated. Subtle patchy hypoattenuating areas are seen within the white matter. Cerebellum: Unremarkable. Mass effect: No evidence of midline shift. Intracranial vasculature: unremarkable Soft tissues: Soft tissue fullness is seen along the posterior superior left scalp with this finding measuring approximately 2.8 cm. Calvarium/osseous structures: No acute depressed skull fracture. Incidental note of a anatomic varian t incompletely fused posterior arch of C1. Paranasal sinuses and mastoid air cells: Clear. Visualized orbits: Orbital contents are intact. IMPRESSION: 1. No acute intracranial process. 2. Nonspecific white matter changes, likely secondary to chronic small vessel ischemic disease. 3. Soft tissue fullness along the posterior superior left scalp may relate to soft tissue hematoma. C orrelate for any history of trauma any other known history. Otherwise patient may benefit from [facility] brain MRI with IV contrast on a nonemergent outpatient basis for further characterization.
[2024-06-04 20:37] LABS: Lactic Acid, Venous 1.7 mmol/L (0.7-2.0)
[2024-06-04 20:38] LABS: ALT 13 U/L (4-34); AST 18 U/L (14-36); Acetaminophen <10.0 ug/mL; African American GFR (CKD) >90 (>60 ml/min/1.73 sqM); Albumin 2.8 g/dL (3.5-5.0); Alcohol <10 mg/dL; Alkaline Phosphatase 353 U/L (38-126); Anion Gap 6 mmol/L; Anisocytosis Slight; Blood Urea Nitrogen 22 mg/dL (7-17); Calcium 7.7 mg/dL (8.4-10.2); Carbon Dioxide 20 mmol/L (22-30); Chloride 105 mmol/L (98-107); Glucose 90 mg/dL (74-99); HCT 26.7 % (34.0-46.0); HGB 8.5 gm/dL (11.4-16.0); MCH 26.7 pg (25.0-35.0); MCHC 31.9 g/dL (31.0-37.0); MCV 83.6 fL (80.0-100.0); Magnesium 1.9 mg/dL (1.6-2.3); Mean Platelet Volume 10.1; Non-African American GFR(CKD) >90 (>60 ml/min/1.73 sqM); Phosphorus 1.4 mg/dL (2.5-4.5); RBC 3.19 m/uL (3.80-5.40); RDW 17.6 % (11.5-15.5); Salicylate <1.0 mg/dL; Sodium 131 mmol/L (137-145)
[2024-06-04 20:48] LABS: NT-Pro-B-Type Natriuretic Pept 708 pg/mL
[2024-06-04 20:56] LABS: INR 1.6 (<1.2); Partial Thromboplastin Time 26.9 sec (22.0-30.0); Prothrombin Time 16.8 sec (10.0-12.5)
[2024-06-04 21:30] LABS: WBC 0.3 k/uL (3.8-10.6)
[2024-06-04 21:31] LABS: Platelet Count 54 k/uL (150-450)
--- NOTE | 2024-06-04 22:18 | XR ---
EXAMINATION TYPE: XR chest 1V portable DATE OF EXAM: 06/04/2024 9:56 PM CLINICAL INDICATION:Female, 54 years old with history of weakness COMPARISON: None TECHNIQUE: Portable supine frontal chest radiograph. FINDINGS: Patient is poorly rotated on exam. Lungs/Pleura: There are multiple round densities seen in the bilateral lung surrounding the jodie and pulmonary vasculature. There is a round opacity overlying the left pulmonary vasculature which may re present a superimposed lesion. No pleural effusions or pneumothorax. Heart/mediastinum: Cardiomediastinal silhouette is unremarkable. Musculoskeletal: No acute osseous pathology. Other findings: None Lines/Tubes: Right chest [id number] catheter seen with distal tip projecting over the proximal right atrium. IMPRESSION: 1. Multiple round densities are seen in the bilateral lungs concerning for nodules. Additional opacit y overlying the left ovary vasculature may represent additional superimposed lesion. Compare with any prior imaging otherwise findings should be further characterized with a dedicated CT chest. 2. Right chest [id number] catheter seen terminating over the proximal right atrium.
[2024-06-04 23:05] VITALS: BP 100/67; PULSE 100; RESP 20
== END 2024-06-04 23:22 | disposition home or self-care (01) ==
LOC: EC 19:08
DX: R41.82 Altered mental status, unspecified (principal); Z88.0 Allergy status to penicillin; Z88.7 Allergy status to serum and vaccine; Z91.030 Bee allergy status; Z91.040 Latex allergy status; Z91.018 Allergy to other foods; Z88.8 Allergy status to other drugs, medicaments and biological substances
CPT/HCPCS: 36415; 93005; 83880; 80053; 82140; 83605; 83735; 84100; 84443; 84484; 85025; 85610; 85730; 80143; 80320; 80179; 71045; 70450; 99285; 96374; 96375; 96361 ×3; J2270; J2405